=== PATIENT | female | born 1980 | race Caucasian/White ===

== ENCOUNTER → 2019-11-18 | Outpatient (CLI) | payer OTHER ==
--- NOTE | 2019-11-18 10:11 | Diagnostic Imaging Report ---
INDICATION: Routine screening. No prior mammograms are available for comparison. This is a baseline study. 2-D and 3-D bilateral screening mammography was performed with CAD. Scattered fibroglandular densities are identified bilaterally. Intraparenchymal lymph node in the outer far posterior right breast is noted. There are 2 densities in the upper posterior left breast on MLO view which appear to be laterally located on tomographic images. Densities appear to be lateral to the nipple line on the CC view, best seen on tomographic images 14 and 38. Additional views are recommended. No suspicious calcifications are seen. There are benign calcifications identified. Axillae are unremarkable. IMPRESSION: BI-RADS 0 Left breast densities. Additional views are recommended for further evaluation. ACR BI-RADS Category 0: Incomplete. (Needs additional imaging evaluation). Result letter will be mailed to the patient. Note: At least 10% of breast cancer is not imaged by mammography. Dictated by: Dictated on workstation # [id number]
== END ==
LOC: RAD 07:27
PROVIDERS: ATTEND Surgery
DX: Z12.31 Encounter for screening mammogram for malignant neoplasm of breast (principal); R92.8 Other abnormal and inconclusive findings on diagnostic imaging of breast
CPT/HCPCS: 77063; 77067

== ENCOUNTER → 2019-11-18 | Outpatient (CLI) | payer SELFPAY ==
[2019-11-18 08:21] LABS: ALANINE AMINOTRANSFERASE 31 U/L (0-55); ALBUMIN 4.3 GM/DL (3.2-4.5); ALKALINE PHOSPHATASE 76 U/L (40-136); BILIRUBIN,TOTAL 0.4 MG/DL (0.1-1.0); BUN/CREATININE RATIO 11; CALCIUM 9.6 MG/DL (8.5-10.1); CARBON DIOXIDE 22 MMOL/L (21-32); CHLORIDE 104 MMOL/L (98-107); CHOLESTEROL 223 MG/DL (< 200); CREATININE SERUM 0.81 MG/DL (0.60-1.30); GFR ESTIMATED > 60; GLUCOSE 98 MG/DL (70-105); HDL CHOLESTEROL 45 MG/DL (40-60); POTASSIUM 3.7 MMOL/L (3.6-5.0); SODIUM 136 MMOL/L (135-145); TOTAL PROTEIN 7.8 GM/DL (6.4-8.2); TRIGLYCERIDES 184 MG/DL (<150); VLDL CHOLESTEROL 37 MG/DL (5-40)
== END ==
LOC: LAB 07:32
PROVIDERS: ATTEND Nurse Practitioner
DX: I10 Essential (primary) hypertension (principal); E03.9 Hypothyroidism, unspecified
CPT/HCPCS: 36415; 80053; 80061; 84443

== ENCOUNTER → 2019-11-19 | Outpatient (CLI) | payer OTHER ==
--- NOTE | 2019-11-19 14:07 | Diagnostic Imaging Report ---
EXAMINATION: Ultrasound of the left breast limited INDICATION: Abnormal mammogram The screening mammogram performed on 11/18/2019 noted 2 small densities in the upper lateral aspect of the left breast at posterior depth. The diagnostic mammogram performed prior this study could only clearly identify one of these densities. On this exam there is a small 4 x 3 mm well-circumscribed avascular hypoechoic area in the 3 o'clock position approximately 8 cm from the nipple. I suspect that this is a small cyst and most likely this does correspond to one of the nodular densities seen on screening mammogram. There is no other solid or cystic mass to suggest malignancy. The other nodular density seen on screening mammogram may be secondary to fibroglandular tissue alone. Even so, as there are no prior studies available comparison. It may be worthwhile to have a short-term (6 month) follow-up mammogram and ultrasound of the left breast for continued evaluation. IMPRESSION: There is a small benign-appearing cyst in the 3 o'clock position of the breast. There is no solid mass to suggest malignancy. Recommendations as above. ACR BI-RADS Category 3: Probably benign findings. Dictated by: Dictated on workstation # [id number]
--- NOTE | 2019-11-19 19:04 | Diagnostic Imaging Report ---
INDICATION: Abnormal mammogram. EXAMINATION: Unilateral left breast digital diagnostic mammogram with CAD. The current study was also evaluated with a Computer Aided Detection (CAD) system. FINDINGS: The baseline screening exam of 11/18/2019 noted two densities in the upper posterior aspect of the left breast. The compression views of these areas show that one of the densities seems to persist but the other density is difficult to appreciate. Neither of these densities were well visualized on the true lateral view. I would recommend that ultrasound be performed for further evaluation. IMPRESSION: Ultrasound would be recommended for further evaluation of the left breast. ACR BI-RADS Category 0: Incomplete. (Needs additional imaging evaluation). Result letter will be mailed to the patient. Note: At least 10% of breast cancer is not imaged by mammography. Dictated by: Dictated on workstation # [id number]
== END ==
LOC: RAD 12:28
PROVIDERS: ATTEND Surgery
DX: R92.2 Inconclusive mammogram (principal)
CPT/HCPCS: 76642; 77065; G0279

== ENCOUNTER → 2020-04-26 | Outpatient (CLI) | payer SELFPAY | LOC: LABNPT 10:43 | PROVIDERS: ATTEND Nurse Practitioner | DX: U07.1 COVID-19 (principal) | CPT/HCPCS: 87635 ==

== ENCOUNTER → 2020-05-18 | Outpatient (CLI) | payer OTHER ==
--- NOTE | 2020-05-18 09:19 | Diagnostic Imaging Report ---
Indication: Six-month follow-up left breast densities. Correlation is made with prior mammogram from 11/18/2019. Unilateral left 2-D and 3-D diagnostic mammography was performed. Scattered fibroglandular densities left breast are noted. The nodular densities in the upper outer left breast posterior depth are much less prominent on today's study. No discrete masses seen on today's study. No malignant appearing microcalcifications are identified. Left axilla is unremarkable. IMPRESSION: BI-RADS Category 0 Patient noted densities upper outer left breast are not well seen on today's study. Even so, follow-up left breast ultrasound is recommended and will be performed today. ACR BI-RADS Category 0: Incomplete. (Needs additional imaging evaluation). Result letter will be mailed to the patient. Note: At least 10% of breast cancer is not imaged by mammography. Dictated by: Dictated on workstation # [id number]
[2020-05-18 10:15] LABS: HEMOGLOBIN 13.5 g/dL (11.5-16.0); MEAN PLATELET VOLUME 10.7 fL (9.0-12.2); WHITE BLOOD COUNT 6.6 10^3/uL (4.3-11.0)
--- NOTE | 2020-05-18 10:23 | Diagnostic Imaging Report ---
INDICATION: Six-month follow-up left breast cyst. Correlation is made with prior left breast ultrasound from 11/19/2019 as well as diagnostic mammogram from earlier same day. Sonographic interrogation 3:00 location, 8 cm from the nipple again demonstrates a tiny cyst approximately 4 mm x 3 mm in size. This is unchanged from prior exam. No internal vascularity is seen. IMPRESSION: BI-RADS Category 2 Simple cyst 3:00 location left breast, 8 cm from the nipple. Patient may return routine annual screening mammography. ACR BI-RADS Category 2: Benign findings. Dictated by: Dictated on workstation # [id number]
[2020-05-18 10:29] LABS: ALBUMIN 4.2 GM/DL (3.2-4.5); CHLORIDE 108 MMOL/L (98-107); POTASSIUM 4.1 MMOL/L (3.6-5.0); SODIUM 140 MMOL/L (135-145)
[2020-05-18 10:31] LABS: GLUCOSE 85 MG/DL (70-105); TOTAL PROTEIN 7.5 GM/DL (6.4-8.2); TRIGLYCERIDES 172 MG/DL (<150); VLDL CHOLESTEROL 34 MG/DL (5-40)
[2020-05-18 10:32] LABS: CARBON DIOXIDE 24 MMOL/L (21-32)
[2020-05-18 10:33] LABS: BILIRUBIN,TOTAL 0.5 MG/DL (0.1-1.0)
[2020-05-18 10:35] LABS: ALKALINE PHOSPHATASE 64 U/L (40-136); CREATININE SERUM 0.82 MG/DL (0.60-1.30); GFR ESTIMATED > 60
[2020-05-18 10:36] LABS: BUN/CREATININE RATIO 11; CHOLESTEROL 180 MG/DL (< 200)
[2020-05-18 10:37] LABS: HDL CHOLESTEROL 42 MG/DL (40-60)
[2020-05-18 10:38] LABS: ALANINE AMINOTRANSFERASE 27 U/L (0-55)
== END ==
LOC: RAD 08:59
PROVIDERS: ATTEND Surgery
DX: N60.02 Solitary cyst of left breast (principal); E78.00 Pure hypercholesterolemia, unspecified; R53.83 Other fatigue; R51.9 Headache, unspecified
CPT/HCPCS: 76642; 77065; 80053; 80061; 84443; 85027; G0279; 36415

== ENCOUNTER → 2021-05-10 | Outpatient (CLI) | payer OTHER ==
--- NOTE | 2021-05-10 13:22 | Diagnostic Imaging Report ---
Indication: Lateral breast pain bilaterally. Correlation is made with prior mammogram from 05/18/2020 and 11/18/2019. 2-D and 3-D bilateral diagnostic mammography was performed with CAD. Scattered fibroglandular densities are identified bilaterally. No mass or malignant-appearing microcalcifications are seen apart from benign nodule in the upper outer right breast consistent with intraparenchymal lymph node. Axillae are unremarkable. IMPRESSION: BI-RADS Category 2 No mammographic features suspicious for malignancy are identified. ACR BI-RADS Category 2: Benign findings. Result letter will be mailed to the patient. Note: At least 10% of breast cancer is not imaged by mammography. Dictated by: Dictated on workstation # [id number]
== END ==
LOC: RAD 13:00
PROVIDERS: ATTEND Surgery
DX: N64.4 Mastodynia (principal)
CPT/HCPCS: 77066; G0279; 77062